=== PATIENT | male | born 1970 | race Caucasian/White ===

== ENCOUNTER 2019-04-06 13:37 | Emergency (ER) | payer BC, OTHER ==
[2019-04-06 13:58] VITALS: BP 112/69
--- OUTSIDE RECORDS SUMMARY | 2019-04-06 14:50 | XMS REPORT | Continuity of Care Document ---
:1970 External Reference #:[id number] Author Name Emre Leal MD Address [address] [place] [address] Care Team Providers Name Role Phone Joao Millard DO Care Team Information [employer]way [employer] Unavailable Joao Millard DO Primary Care Physician Unavailable Payers Date Identification Numbers Payment Provider Subscriber Policy Number: [id number] [employer] [place] PayID: [id number] [address] [place] [address] Effective: 2017 Policy Number: [id number] [facility] [place] Expires: 2018 PayID: [id number] [address] [address] [place] [address] Expires: 2017 Policy Number: [id number] [employer] [place] PayID: [id number] [address] [place] [address] Social History Type Date Description Comments Sex Unknown Tobacco Use Start: Unknown Patient has never smoked Smoking Status Reviewed: 04/03/19 Patient has never smoked Allergies, Adverse Reactions, Alerts Description No Known Drug Allergies Medications Active Medications SIG Qnty Indications Ordering Provider Date Metformin HCL Unknown 500mg Tablets Glimepiride Unknown 4mg Tablets Losartan Potassium Unknown 100mg Tablets Aspir-Low 1 by mouth every Unknown 81mg Tablets DR day History Medications Valacyclovir HCL take 2 tablets by Unknown - 02/01/2017 1gm Tablets mouth AT Onset Of Cold Sores And Repeat In 12 Hours Famciclovir take 1 tablet by mouth Unknown - 01/09/2019 500mg Tablets three times a day x 7 days Valacyclovir HCL 2 by mouth at onset of Unknown - 01/09/2019 1gm Tablets cold sores and repeat 12 hours Procedures Date Code Description Status 04/03/2019 89843 Eye Exam Est Patient Comprehensive Completed 03/14/2018 65749 Eye Exam Est Patient Comprehensive Completed 04/29/2017 62727 Eye Exam Est Patient Comprehensive Completed 01/27/2017 13429 Eye Exam New Patient Comprehensive Completed 03/17/2016 51933 Stress Test Interpre And Report Only Completed 03/17/2016 93769 Stress Test Physician Super Only Completed 03/17/2016 48947 Stress Test Physician Super Only Completed Plan of Treatment Future Appointment(s):04/07/2020 8:45 am - Emre Leal MD at [id number]/ 11/2019 - Emre Leal MDE11.9 Type 2 diabetes mellitus without complicationsComments:- no sign of diabetic retinopathy- no macular edema- no neovascularization- glycemic, bp, lipid, weight control- potential for retinopathy, vision loss, and potential need for treatment- letter to primaryFollow up:1 year exam; dm2H52.4 PresbyopiaComments:- can consider otc readers, +1.50 strength or +2.00H04.123 Dry eye syndrome of bilateral lacrimal glandsComments:- if bothersome, please consider:- warm compresses- artificial tears both eyes- consider ointment atnight- can consider punctal occlusion or restasis
--- NOTE | 2019-04-06 15:32 | UC ---
Abdominal Pain Male HPI - HPI Summary HPI Summary: right subcostal pain x about 2-3 weeks no fever constant worse with food relief when supine radiates to back at times hx kidney stones - History of Current Complaint Chief Complaint: UCChestPain Stated Complaint: RT SIDE CHEST/STOMACH PAIN x1 WK Time Seen by Provider: 04/06/19 14:36 Hx Obtained From: Patient Onset/Duration: Gradual Onset, Lasting Weeks Timing: Constant Severity Initially: Moderate Severity Currently: Mild Pain Intensity: 4 Pain Scale Used: 0-10 Numeric Location: Discrete At: RUQ Radiates: Yes Radiates to: Back Character: Colicy, Cramping, Sharp Aggravating Factor(s): Food Alleviating Factor(s): Position Associated Signs And Symptoms: Positive: Chest Pain - right lower chest, Back Pain. Negative: Diaphoresis, Fever, Cough, Constipation, Blood in Stool, Urinary Symptoms, Decreased Appetite, Nausea, Vomiting, Diarrhea, Penile Discharge Male Torso: 1 - pain here 2 - radiates here - Allergies/Home Medications Allergies/Adverse Reactions: Allergies Allergy/AdvReac Type Severity Reaction Status Date / Time ragweed pollen Allergy Eyes Verified 04/06/19 13:59 Itchy/Swollen/Red/Watery Home Medications: Home Medications Ibuprofen TAB* [Motrin TAB* 600 MG] 600 mg PO ONCE PRN 04/06/19 [History Confirmed 04/06/19] Losartan TAB* [Cozaar TAB*] 0 mg PO DAILY 04/06/19 [History Confirmed 04/06/19] PMH/Surg Hx/FS Hx/Imm Hx Previously Healthy: Yes Endocrine History: Diabetes, Dyslipidemia Cardiovascular History: Hypertension - Surgical History Surgical History: None - Family History Known Family History: Positive: Hypertension, Diabetes - Social History Alcohol Use: None Substance Use Type: None Smoking Status (MU): Never Smoked Tobacco - Immunization History Most Recent Influenza Vaccination: none Review of Systems All Other Systems Reviewed And Are Negative: Yes Constitutional: Positive: Negative Skin: Positive: Negative Eyes: Positive: Negative ENT: Positive: Negative Respiratory: Positive: Negative Cardiovascular: Positive: Negative Gastrointestinal: Positive: Abdominal Pain Motor: Positive: Negative Neurovascular: Positive: Negative Musculoskeletal: Positive: Negative Neurological: Positive: Negative Psychological: Positive: Negative Physical Exam Triage Information Reviewed: Yes Appearance: Well-Appearing, No Pain Distress, Well-Nourished Vital Signs: Initial Vital Signs Temp 98.9 F 04/06/19 13:51 Pulse 89 04/06/19 13:51 Resp 20 04/06/19 13:51 BP 112/69 04/06/19 13:51 Pulse Ox 100 04/06/19 13:51 Vital Signs Reviewed: Yes Eyes: Positive: Conjunctiva Clear ENT: Positive: Hearing grossly normal, Uvula midline. Negative: Nasal congestion, Nasal drainage, Trismus, Muffled voice, Hoarse voice Neck: Positive: Supple, Nontender, No Lymphadenopathy Respiratory: Positive: Lungs clear, Normal breath sounds, No respiratory distress, No accessory muscle use Cardiovascular: Positive: RRR, No Murmur Abdomen Description: Negative: Nontender - tender epigastric and RUQ to deep palpation Bowel Sounds: Positive: Present Musculoskeletal: Positive: ROM Intact, No Edema Neurological: Positive: Alert Psychological Exam: Normal Skin Exam: Normal Diagnostics - Laboratory Lab Results: UA -RBCs - Radiology No standard instances Radiology Interpretation Completed By: Radiologist Summary of Radiographic Findings: no gall stones - EKG Cardiac Rhythm: Sinus: Normal Ectopy: None ST Segment: Normal EKG Comparison: No Significant Change Abd Pain Male Course/Dx - Course Course Of Treatment: D/W Marlin (SARAH) to ER via POV - Differential Dx/Clinical Impression Provider Diagnosis: Right upper quadrant abdominal pain Discharge - Sign-Out/Discharge Documenting (check all that apply): Patient Departure All imaging exams completed and their final reports reviewed: Yes - Discharge Plan Condition: Stable Disposition: HOME-RECOMMEND TO ED Referrals: Wil Santiago DO [Medical Doctor] - If Needed Additional Instructions: I suggest you go straight to the ER for evaluation of your abd pain They are expecting you Take copies of EKG and U/S - Billing Disposition and Condition Condition: STABLE Disposition: Home-Recommend to ED
== END 2019-04-06 15:54 | disposition home health service (06) ==
LOC: UCCORT 13:37
DX: R10.11 Right upper quadrant pain (principal); I10 Essential (primary) hypertension; E11.9 Type 2 diabetes mellitus without complications; Z79.899 Other long term (current) drug therapy
CPT/HCPCS: 76705; 81003; 93005; 99202; G0463